=== PATIENT | female | born 1990 | race African-American/Black ===

== ENCOUNTER 2021-02-23 19:58 | Emergency (ER) | payer OTHER ==
[~2021-02-23] VITALS: Ht 165.1 cm; Wt 61.2 kg
== END 2021-02-24 00:04 | disposition home or self-care (01) ==
LOC: ER 19:58
DX: O26.891 Other specified pregnancy related conditions, first trimester (principal); R05.9 Cough, unspecified; R51.9 Headache, unspecified; Z20.822 Contact with and (suspected) exposure to COVID-19; Z3A.12 12 weeks gestation of pregnancy